=== PATIENT | male | born 1965 | race Caucasian/White ===

== ENCOUNTER → 2024-03-08 08:30 | Outpatient (REF) | payer OTHER, SELFPAY ==
[2024-03-08 09:18] LABS: % Eosinophils 4.8 % (0-6); % Immature Granulocytes 0.2 % (0-0.5); % Lymphocytes 25.7 % (20.5-51.1); % Monocytes 7.5 % (1.7-9.3); % Neutrophils 60.8 % (42.2-75.2); Absolute Basophils 0.1 10^3/uL (0-0.2); Absolute Eosinophils 0.3 10^3/uL (0-0.7); Absolute Lymphocytes 1.3 10^3/uL (1.2-3.4); Absolute Monocytes 0.4 10^3/uL (0.1-0.6); Absolute Neutrophils 3.2 10^3/uL (1.4-6.5); Hematocrit 42.6 % (39.0-52.0); Hemoglobin 14.4 g/dL (13.0-18.0); Mean Corp Hgb Conc. 33.8 g/dL (33.0-37.0); Mean Corpuscular Hgb 28.7 pg (27.0-31.0); Mean Platelet Volume 10.1 fL (7.4-10.4); Nucleated Red Blood Cells % 0 % (-); Platelet Count 233 10^3/uL (130-400); Red Blood Cell Count 5.01 10^6/uL (4.70-6.10); Red Cell Dist. Width 12.7 % (11.5-14.5); White Blood Cell Count 5.2 10^3/uL (4.8-10.8)
[2024-03-08 09:51] LABS: ALT (SGPT) 25 U/L (0-50); AST (SGOT) 31 U/L (17-59); Albumin 4.2 g/dl (3.5-5.0); Alkaline Phosphatase 124 U/L (38-126); Blood Urea Nitrogen 20 mg/dl (9-20); Calcium 9.6 mg/dl (8.4-10.2); Carbon Dioxide 26 mmol/L (22-30); Chloride 107 mmol/L (98-107); Glucose 93 mg/dl (70-99); HDL Cholesterol 42 mg/dl; LDL Cholesterol, Calculated 115 mg/dl; Potassium 4.5 mmol/L (3.5-5.1); Sodium 140 mmol/L (135-145); Total Bilirubin 0.9 mg/dl (0.2-1.3); Total Cholesterol 172 mg/dl (50-199); Total Protein 6.8 g/dl (6.3-8.2); Triglyceride 77 mg/dl (10-149); Very Low Density Lipoprotein 15 mg/dl (0-30); eGFR > 60.00
== END ==
LOC: RAD 08:30
PROVIDERS: ATTENDING PHYSICIAN Nurse Practitioner Family
DX: Z85.72 Personal history of non-Hodgkin lymphomas (principal); R07.81 Pleurodynia; Z12.5 Encounter for screening for malignant neoplasm of prostate; Z12.11 Encounter for screening for malignant neoplasm of colon
CPT/HCPCS: 36415; 71111; 80053; 80061; 84153; 84154; 85025

== ENCOUNTER 2024-05-10 13:40 | Inpatient (IN) | payer OTHER, SELFPAY ==
[2024-05-10 08:23] VITALS: BP 159/90
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
[2024-05-10 09:21] LABS: % Basophils 1.1 % (0-2); % Eosinophils 3.8 % (0-6); % Immature Granulocytes 0.4 % (0-0.5); % Lymphocytes 21.6 % (20.5-51.1); % Neutrophils 65.1 % (42.2-75.2); Absolute Basophils 0.1 10^3/uL (0-0.2); Absolute Eosinophils 0.2 10^3/uL (0-0.7); Absolute Lymphocytes 1.2 10^3/uL (1.2-3.4); Absolute Monocytes 0.4 10^3/uL (0.1-0.6); Absolute Neutrophils 3.6 10^3/uL (1.4-6.5); Hematocrit 42.4 % (39.0-52.0); Hemoglobin 14.9 g/dL (13.0-18.0); Mean Corp Hgb Conc. 35.1 g/dL (33.0-37.0); Mean Corpuscular Hgb 29.3 pg (27.0-31.0); Mean Corpuscular Volume 83.3 fL (80.0-94.0); Mean Platelet Volume 9.3 fL (7.4-10.4); Nucleated Red Blood Cells % 0 % (-); Platelet Count 210 10^3/uL (130-400); Red Blood Cell Count 5.09 10^6/uL (4.70-6.10); Red Cell Dist. Width 12.9 % (11.5-14.5); White Blood Cell Count 5.5 10^3/uL (4.8-10.8)
[2024-05-10] MEDS: ULTRAM 100 MG PO (09:43)
[2024-05-10 10:00] LABS: ALT (SGPT) 23 U/L (0-50); AST (SGOT) 32 U/L (17-59); Albumin 4.4 g/dl (3.5-5.0); Alkaline Phosphatase 130 U/L (38-126); Blood Urea Nitrogen 22 mg/dl (9-20); Calcium 10.1 mg/dl (8.4-10.2); Carbon Dioxide 26 mmol/L (22-30); Chloride 107 mmol/L (98-107); Glucose 105 mg/dl (70-99); Lipase 175 U/L (23-300); Potassium 4.4 mmol/L (3.5-5.1); Sodium 140 mmol/L (135-145); Total Bilirubin 0.6 mg/dl (0.2-1.3); Total Protein 6.9 g/dl (6.3-8.2); eGFR > 60.00
[2024-05-10 11:14] VITALS: BP 141/94
[2024-05-10 13:00] VITALS: BP 134/93
[2024-05-10] MEDS: DILAUDID 0.5 MG IV ×2 (13:30→20:38)
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
--- NOTE | 2024-05-10 15:34 | CON.ONC ---
Impression
Impression
FDG avid cluster of retroperitoneal lymph nodes in the region of patient's discomfort
History of stage I non-Hodgkin's lymphoma now remote 2015
Pain syndrome
Plan
Plan
IR directed core biopsy
Pulse dexamethasone
Proton pump inhibitor
Titrate pain medication
Consider MRI of T12 for progressive neurologic symptoms
Monitor CBC, uric acid and LDH
Patient History
History of Present Illness
Patient is a 58 years old male who comes to the emergency room with progressively worsening of the left upper abdominal and left flank pain. Pain has been worsening over the period of last few weeks. Pain is not positional, persistent and mostly
during throughout the night. Patient has been taking tramadol for pain at home with no significant relief. He denies any shortness of breath, chest pain, fever or chills. He was previously treated for stage I diffuse large cell with 3 cycles of
R-CHOP followed by involved field radiation. Recently PET scan 15 days ago with findings concerning for recurrent lymphoma and extensive lymphadenopathy On the superior retroperitoneum abutting the diaphragm and the location of his discomfort. Very
possible that the tumor is compressing a nerve root exacerbating dermatomal discomfort. He has been admitted to the hospital for Pain control and to expedite biopsy to confirm pathology.
.
Past-Medical/Surgical History
Past Medical History
B-cell lymphoma treated with chemotherapy and radiation 2015
Past Surgical History: Reports None
Social History
Tobacco: Non-smoker
Alcohol: None
Drug: None
Personal: Single
Living: With Family
Family History
Not pertinent
Patient Medication
�Medication �Instructions �Recorded �Confirmed �Last Taken �Type
tramadol 50 mg tablet 50 mg PO BIDPRN PRN moderate pain 05/10/24 05/10/24 3 Days Ago History
~05/07/24
Review of Systems
-
12 point review of systems fails elicit additional complaints other than those noted in the HPI.
Physical Exam
-
Physical Exam
General: Well Developed, Well Nourished and No Apparent Distress
HEENT: NormoCephalic, Moist mucous membranes and Atraumatic
Respiratory: Clear
Cardiac: S1/S2 and Regular Rhythm; No Murmur or Rub
GI: Soft, Non Tender, Non Distended and Normal Bowel Sounds; No Organomegaly
Musculoskeletal: No Clubbing, No Cyanosis and No Edema
Skin: No Rash
Neuro: Nonfocal/grossly intact
Labs
Lab Results
WBC 5.5 10^3/uL (4.8-10.8) 05/10/24 09:13
RBC 5.09 10^6/uL (4.70-6.10) 05/10/24 09:13
Hgb 14.9 g/dL (13.0-18.0) 05/10/24 09:13
Hct 42.4 % (39.0-52.0) 05/10/24 09:13
MCV 83.3 fL (80.0-94.0) 05/10/24 09:13
MCH 29.3 pg (27.0-31.0) 05/10/24 09:13
MCHC 35.1 g/dL (33.0-37.0) 05/10/24 09:13
RDW 12.9 % (11.5-14.5) 05/10/24 09:13
Plt Count 210 10^3/uL (130-400) 05/10/24 09:13
MPV 9.3 fL (7.4-10.4) 05/10/24 09:13
Abs Immat Gran (auto) 0.0 10^3/uL (0-0.05) 05/10/24 09:13
Absolute Neuts (auto) 3.6 10^3/uL (1.4-6.5) 05/10/24 09:13
Absolute Lymphs (auto) 1.2 10^3/uL (1.2-3.4) 05/10/24 09:13
Absolute Monos (auto) 0.4 10^3/uL (0.1-0.6) 05/10/24 09:13
Absolute Eos (auto) 0.2 10^3/uL (0-0.7) 05/10/24 09:13
Absolute Basos (auto) 0.1 10^3/uL (0-0.2) 05/10/24 09:13
Immature Gran % 0.4 % (0-0.5) 05/10/24 09:13
Neutrophils % 65.1 % (42.2-75.2) 05/10/24 09:13
Lymphocytes % 21.6 % (20.5-51.1) 05/10/24 09:13
Monocytes % 8.0 % (1.7-9.3) 05/10/24 09:13
Eosinophils % 3.8 % (0-6) 05/10/24 09:13
Basophils % 1.1 % (0-2) 05/10/24 09:13
Creatinine 0.8 mg/dL (0.7-1.3) 05/10/24 09:13
Vital Signs
Vital Signs
Temp Pulse Resp BP Pulse Ox
98.6 F 86 17 134/93 96
05/10/24 08:23 05/10/24 13:00 05/10/24 13:00 05/10/24 13:00 05/10/24 13:00
[2024-05-10 15:53] VITALS: BP 144/93; BMI 32.8
[2024-05-10] MEDS: PROTONIX PO (16:39)
[2024-05-10 16:53] LABS: Glucose - Point of Care 98 mg/dl (70-99)
[2024-05-10] MEDS: NOVOLOG FLEXPEN-LOW RESISTANCE SC (17:01)
[2024-05-10] MEDS: DECADRON 60 MG IV (17:03)
--- NOTE | 2024-05-10 17:25 | PTCARENOTE ---
Rec'd pt from ED, oriented to room and unit. Call narcisa provided to pt, instructed him to ring for assistance. will cont to monitor.
[2024-05-10 21:28] LABS: Glucose - Point of Care 168 mg/dl (70-99)
[2024-05-10 23:47] VITALS: BP 146/85
[2024-05-11 06:24] LABS: Glucose - Point of Care 163 mg/dl (70-99)
[2024-05-11 07:02] LABS: Glucose - Point of Care 184 mg/dl (70-99)
[2024-05-11 07:47] VITALS: BP 140/98
[2024-05-11] MEDS: PROTONIX 40 MG PO (08:26)
[2024-05-11] MEDS: NOVOLOG FLEXPEN-LOW RESISTANCE 1 UNITS SC (08:26)
[2024-05-11 08:40] LABS: LDH 243 U/L (120-246); Uric Acid 4.5 mg/dl (3.5-8.5)
--- NOTE | 2024-05-11 09:24 | W.PN.ONC ---
Today's Communication / Plan
-
For IR biopsy of RP mass
Normal LDH and uric acid are reassuring
I discontinued dexamethasone - could interfere w/ accuracy of biopsy results, especially if today's biopsy is nondiagnostic
Continue prn pain meds, mostly needed at nighttime. Discussed the need for bowel regimen while on opioids.
Okay for d/c home after biopsy on oral pain meds prn. Will arrange office f/u in 10-14 days to review results and plan treatment.
Impression
Impression
FDG avid cluster of retroperitoneal lymph nodes in the region of patient's discomfort
History of stage I non-Hodgkin's lymphoma now remote 2015
Pain syndrome
Plan
Plan
For IR biopsy of RP mass
Normal LDH and uric acid are reassuring
I discontinued dexamethasone - could interfere w/ accuracy of biopsy results, especially if today's biopsy is nondiagnostic
Continue prn pain meds, mostly needed at nighttime. Discussed the need for bowel regimen while on opioids.
Okay for d/c home after biopsy on oral pain meds prn. Will arrange office f/u in 10-14 days to review results and plan treatment.
Subjective/Objective
Subjective/Objective
Feeling much better after dose of steroids and prn dilaudid. Had normal BM this am.
Vital Signs:
Vital Signs
Temp Pulse Resp BP Pulse Ox
98.2 F 97 18 140/98 99
05/11/24 07:47 05/11/24 07:47 05/11/24 07:47 05/11/24 07:47 05/11/24 07:47
Lab Results:
Laboratory Data
WBC 5.5 10^3/uL (4.8-10.8) 05/10/24 09:13
Hgb 14.9 g/dL (13.0-18.0) 05/10/24 09:13
Plt Count 210 10^3/uL (130-400) 05/10/24 09:13
eGFR > 60.00 05/10/24 09:13
[2024-05-11 09:27] LABS: Hepatitis C Antibody Negative (Negative)
[2024-05-11 10:21] LABS: Glycohemoglobin (HgbA1c) 5.3 % (4.0-5.6)
[2024-05-11 13:01] LABS: Glucose - Point of Care 126 mg/dl (70-99)
[2024-05-11] MEDS: NOVOLOG FLEXPEN-LOW RESISTANCE SC ×2 (13:52→17:34)
--- NOTE | 2024-05-11 15:01 | W.DS.TRANS ---
DC Summary - Cashier Host/Hostess
-
Discharge Instructions:
Discharge Diagnosis/Procedures Lymphoma.
Malignant pain
Diet Regular
Instructions:
Stand-Alone Forms:
Changes to Home Medications: Yes
Discharge Medications:
DC Medications w/original date entered in [facility]
acetaminophen 325 mg tablet 650 mg (2 x 325 mg) PO Q4HPRN PRN mild pain and fever #30 tabs 05/11/24
oxycodone 10 mg tablet 10 mg PO Q4HPRN PRN moderate pain #30 tabs 05/11/24
Home Medication Changes
Above
Pending Results: No
--- NOTE | 2024-05-11 15:34 | CM ---
Initial assessment completed
Pharmacy verified: [facility] [address] [place] [id number]
Patient and spouse live in a 2 story home; 1 step to enter; 11 steps to 2nd floor; full bath on both floors of home; 2nd floor bath has tub/shower, grab bar; has a shower chair if needed
PLOF: independent with ambulation, steps and ADLs; drives; self employed artisan; on disability
No food, housing, utilities, and transportation insecurity at this time; concerns for future. Provided [employer] website
Transportation: plans to drive self home
No SNF history
Has a history of Lymphoma; schedule to return on Tuesday for biopsy as an outpatient
Plan: discharge to home after MRI today; no services needed
[2024-05-11 15:40] VITALS: BP 146/85
== END 2024-05-11 18:45 | disposition home or self-care (01) | DRG 948 ==
LOC: 4 EAST ACU 13:40
PROVIDERS: ADMITTING PHYSICIAN Internal Medicine; CONSULT PHYSICIAN Internal Medicine Hematology & Oncology; EMERGENCY PHYSICIAN Emergency Medicine; FAMILY PHYSICIAN Nurse Practitioner Family
DX: G89.3 Neoplasm related pain (acute) (chronic) (principal); C85.98 Non-Hodgkin lymphoma, unspecified, lymph nodes of multiple sites; Z92.21 Personal history of antineoplastic chemotherapy; Z92.3 Personal history of irradiation; Z96.659 Presence of unspecified artificial knee joint; Z87.891 Personal history of nicotine dependence
CPT/HCPCS: 49180; 71275; 72157; 74177; 77012; 80053; 82962; 83036; 83615; 83690; 84550; 85025; 86803; 99285; A9575; Q9967

== ENCOUNTER → 2024-05-14 09:10 | Outpatient (REF) | payer OTHER, SELFPAY ==
[2024-05-14 09:48] VITALS: BP 140/96; BP_SYST 68
[2024-05-14 11:21] VITALS: BP 145/103; BP_SYST 66
[2024-05-14 11:42] VITALS: BP 139/98
== END ==
LOC: RADI 09:10
PROVIDERS: ATTENDING PHYSICIAN Internal Medicine Hematology & Oncology; FAMILY PHYSICIAN Family Medicine
DX: C83.33 Diffuse large B-cell lymphoma, intra-abdominal lymph nodes (principal)
CPT/HCPCS: 88305; 49180; 88333; 88341; 88342; 88365; 99152; 99153

== ENCOUNTER → 2024-05-29 10:03 | Outpatient (REF) | payer OTHER, SELFPAY ==
[2024-05-29] VITALS (7 sets, daily range): BP systolic 61–152; BP diastolic 81–98
[2024-05-29] MEDS: ANCEF 10 IV (11:52)
== END ==
LOC: RADI 10:03
PROVIDERS: ATTENDING PHYSICIAN Internal Medicine Hematology & Oncology; FAMILY PHYSICIAN Family Medicine; REFERRING PHYSICIAN Nurse Practitioner Family
DX: C83.34 Diffuse large B-cell lymphoma, lymph nodes of axilla and upper limb (principal)
CPT/HCPCS: 36561; 76942; 77001; 99152; 99153; C1788

== ENCOUNTER → 2024-08-28 09:13 | Outpatient (REF) | payer OTHER, SELFPAY | LOC: HWRCS 09:13 | PROVIDERS: ATTENDING PHYSICIAN Student in an Organized Health Care Education/Training Program; FAMILY PHYSICIAN Nurse Practitioner Family | DX: C83.30 Diffuse large B-cell lymphoma, unspecified site (principal); G89.3 Neoplasm related pain (acute) (chronic) | CPT/HCPCS: 93306 ==